=== PATIENT | male | born 1980 | race Hispanic/Latino ===

== ENCOUNTER 2018-07-24 06:13 | Emergency (ER) | payer OTHER, SELFPAY ==
[2018-07-24] MEDS ORDERED: KETOROLAC 30 MG/ML INJ ONE (06:50)
--- NOTE | 2018-07-24 06:52 | ER ---
Nurse's Notes [facility] Name: Danilo Baker Jr Age: 37 yrs Sex: Male : 1980 Arrival Date: 07/24/2018 Time: 06:14 Bed 7 Private MD: Diagnosis: Hemorrhoids and perianal venous thrombosis Presentation: 07/24 06:28 Presenting complaint: Patient states: "I have an abscess in my butt crack". Pt reports tl2 noticing it 2 days ago and states it is the size of a small egg. Denies any draining. Denies fever or any symptoms. Transition of care: patient was not received from another setting of care. Onset of symptoms was July 21, 2018. Risk Assessment: Do you want to hurt yourself or someone else? Patient reports no desire to harm self or others. Initial Sepsis Screen: Does the patient meet any 2 criteria? No. Patient's initial sepsis screen is negative. Does the patient have a suspected source of infection? No. Patient's initial sepsis screen is negative. Care prior to arrival: None. 06:28 Method Of Arrival: Ambulatory tl2 06:28 Acuity: SAURABH 3 tl2 Triage Assessment: :31 General: Appears in no apparent distress. uncomfortable, Behavior is cooperative, tl2 appropriate for age, anxious. Pain: Complains of pain in gluteal cleft Pain does not radiate. Pain currently is 10 out of 10 on a pain scale. Quality of pain is described as throbbing. Neuro: Level of Consciousness is awake, alert, obeys commands, Oriented to person, place, time, situation. Cardiovascular: Denies chest pain. Respiratory: Airway is patent Respiratory effort is even, unlabored, Respiratory pattern is regular, symmetrical. GI: No signs and/or symptoms were reported involving the gastrointestinal system. : No signs and/or symptoms were reported regarding the genitourinary system. Historical: - Allergies: : No Known Allergies; tl2 - Home Meds: : Metformin Oral [Active]; Glimepiride Oral [Active]; Lisinopril Oral [Active]; tl2 Lovastatin Oral [Active]; - PMHx: 06:31 Diabetes - NIDDM; Hypertension; Hyperlipidemia; tl2 - PSHx: : None; tl2 - Immunization history:: Adult Immunizations up to date. - Social history:: Smoking status: Patient/guardian denies using tobacco. - Ebola Screening: : No symptoms or risks identified at this time. Screenin:33 Abuse screen: Denies threats or abuse. Nutritional screening: No deficits noted. tl2 Tuberculosis screening: No symptoms or risk factors identified. Fall Risk None identified. Assessment: 06:31 General: see triage assessment. tl2 06:40 Reassessment: on PROJECT ARCHITECT assessment, pt appears to have a hemorrhoid, painful to touch. No tl2 redness or infection noted. 07:00 Reassessment: Patient appears in no apparent distress at this time. Patient and/or tl2 family updated on plan of care and expected duration. Pain level reassessed. Patient is alert, oriented x 3, equal unlabored respirations, skin warm/dry/pink. Pt verbalized understanding of discharge instructions, need for follow up and prescription usage. Vital Signs: 06:31 BP 134 / 99; Pulse 115; Resp 20; Temp 98.5(O); Pulse Ox 95% on R/A; Weight 99.79 kg; tl2 Height 5 ft. 7 in. (170.18 cm); Pain 10/10; 07:00 BP 132 / 98; Pulse 102; Resp 20; Pulse Ox 97% on R/A; tl2 06:31 Body Mass Index 34.46 (99.79 kg, 170.18 cm) tl2 ED Course: 06:14 Patient arrived in ED. am2 06:29 Triage completed. tl2 06:31 Arm band placed on right wrist. tl2 06:33 Patient has correct armband on for positive identification. Placed in gown. Bed in low tl2 position. Call light in reach. Side rails up X 1. 06:34 [facility]C [facility] kb 06:34 Isauro Andrade MD is Attending Physician. kb 07:01 No provider procedures requiring assistance completed. Patient did not have IV access tl2 during this emergency room visit. 07:03 Tarsha Mishra, ELIZA is Primary Nurse. tl2 Administered Medications: 06:49 Drug: TORadol 60 mg Route: IM; Site: right gluteus; tl2 07:30 Follow up: Response: No adverse reaction; Pain is decreased tl2 Outcome: 06:52 Discharge ordered by . kb 07:01 Discharged to home ambulatory. tl2 07:01 Condition: stable 07:01 Discharge instructions given to patient, Instructed on discharge instructions, follow up and referral plans. medication usage, Demonstrated understanding of instructions, follow-up care, medications, Prescriptions given X 2. 07:30 Patient left the ED. tl2 Signatures: Dina Garcia FNP-C FNP-Tarsha Yanes RN RN tl2 Nicky Arriaza am2 Corrections: (The following items were deleted from the chart) 06:39 06:31 Derm: Skin is pink, warm \\T\\ dry. Abscess located on gluteal cleft is quarter tl2 sized, has no drainage, is red, tl2 06:41 06:30 General: see triage assessment. tl2 tl2
--- NOTE | 2018-07-24 06:52 | EDPHYS ---
Physician Documentation [facility] Name: Danilo Baker Jr Age: 37 yrs Sex: Male : 1980 Arrival Date: 07/24/2018 Time: 06:14 Bed 7 Private MD: ED Physician Isauro Andrade HPI: 07/24 06:50 This 37 yrs old Male presents to ER via Ambulatory with complaints of Abscess. kb 06:50 The patient has experienced a previous episode. The patient has not recently seen a kb physician. 06:51 The patient presents to the emergency department with pain in the rectal area, that is kb moderate, that is severe. Onset: The symptoms/episode began/occurred 2 day(s) ago. Context: the patient has no known special context relating to the rectal area complaint(s). Modifying factors: The symptoms are alleviated by nothing, The symptoms are aggravated by bowel movement, movement, pressure. Associate signs and symptoms: The patient has no apparent associated signs or symptoms. Historical: - Allergies: 06:31 No Known Allergies; tl2 - Home Meds: 06:31 Metformin Oral [Active]; Glimepiride Oral [Active]; Lisinopril Oral [Active]; tl2 Lovastatin Oral [Active]; - PMHx: 06:31 Diabetes - NIDDM; Hypertension; Hyperlipidemia; tl2 - PSHx: 06:31 None; tl2 - Immunization history:: Adult Immunizations up to date. - Social history:: Smoking status: Patient/guardian denies using tobacco. - Ebola Screening: : No symptoms or risks identified at this time. ROS: 06:49 Constitutional: Negative for fever, chills, and weight loss, Cardiovascular: Negative kb for chest pain, palpitations, and edema, Respiratory: Negative for shortness of breath, cough, wheezing, and pleuritic chest pain, Back: Negative for injury and pain, MS/Extremity: Negative for injury and deformity, Skin: Negative for injury, rash, and discoloration, Neuro: Negative for headache, weakness, numbness, tingling, and seizure. 06:49 Abdomen/GI: Positive for rectal pain. Exam: 06:49 Constitutional: This is a well developed, well nourished patient who is awake, alert, kb and in no acute distress. Head/Face: Normocephalic, atraumatic. Chest/axilla: Normal chest wall appearance and motion. Nontender with no deformity. No lesions are appreciated. Cardiovascular: Regular rate and rhythm with a normal S1 and S2. No gallops, murmurs, or rubs. Normal PMI, no JVD. No pulse deficits. Respiratory: Lungs have equal breath sounds bilaterally, clear to auscultation and percussion. No rales, rhonchi or wheezes noted. No increased work of breathing, no retractions or nasal flaring. Abdomen/GI: Soft, non-tender, with normal bowel sounds. No distension or tympany. No guarding or rebound. No evidence of tenderness throughout. Skin: Warm, dry with normal turgor. Normal color with no rashes, no lesions, and no evidence of cellulitis. MS/ Extremity: Pulses equal, no cyanosis. Neurovascular intact. Full, normal range of motion. Neuro: Awake and alert, GCS 15, oriented to person, place, time, and situation. Cranial nerves II-XII grossly intact. Motor strength 5/5 in all extremities. Sensory grossly intact. Cerebellar exam normal. Normal gait. 06:49 Abdomen/GI: Rectal exam: rectal tone normal, hemorrhoid(s), external, with inflammation, with pain, without bleeding, without thrombosis, tenderness, that is severe, the exam is chaperoned by the nurse. Vital Signs: 06:31 BP 134 / 99; Pulse 115; Resp 20; Temp 98.5(O); Pulse Ox 95% on R/A; Weight 99.79 kg; tl2 Height 5 ft. 7 in. (170.18 cm); Pain 10/10; 07:00 BP 132 / 98; Pulse 102; Resp 20; Pulse Ox 97% on R/A; tl2 06:31 Body Mass Index 34.46 (99.79 kg, 170.18 cm) tl2 MDM: 06:34 Patient medically screened. kb 06:49 Data reviewed: vital signs, nurses notes. Data interpreted: Pulse oximetry: on room air kb is 95 %. Interpretation: normal. Counseling: I had a detailed discussion with the patient and/or guardian regarding: the historical points, exam findings, and any diagnostic results supporting the discharge/admit diagnosis, the need for outpatient follow up, a general surgeon, to return to the emergency department if symptoms worsen or persist or if there are any questions or concerns that arise at home. Administered Medications: 06:49 Drug: TORadol 60 mg Route: IM; Site: right gluteus; tl2 07:30 Follow up: Response: No adverse reaction; Pain is decreased tl2 Disposition: 07/24/18 06:52 Discharged to Home. Impression: Hemorrhoids and perianal venous thrombosis. - Condition is Stable. - Discharge Instructions: Hemorrhoids, [id number]. - Prescriptions for Anusol- HC 2.5 % Rectal Cream - Apply to affected area 1 application by TOPICAL route every 8 hours As needed; 30 gram. - Medication Reconciliation Form, Thank You Letter, Antibiotic Education, Prescription Opioid Use form. - Follow up: Emergency Department; When: As needed; Reason: Worsening of condition. Follow up: Private Physician; When: 2 - 3 days; Reason: Recheck today's complaints, Continuance of care, Re-evaluation by your physician. Addendum: 07/27/2018 17:29 Co-signature as Attending Physician, Isauro Andrade MD. g s Signatures: Dina Garcia, BETH-C BETH-Tarsha Yanes RN RN tl2 Isauro Andrade MD MD Corrections: (The following items were deleted from the chart) 07/24 07:30 06:52 07/24/2018 06:52 Discharged to Home. Impression: Hemorrhoids and perianal venous tl2 thrombosis. Condition is Stable. Forms are Medication Reconciliation Form, Thank You Letter, Antibiotic Education, Prescription Opioid Use. Follow up: Emergency Department; When: As needed; Reason: Worsening of condition. Follow up: Private Physician; When: 2 - 3 days; Reason: Recheck today's complaints, Continuance of care, Re-evaluation by your physician. kb
== END 2018-07-24 07:30 | disposition home or self-care (01) ==
LOC: ER 06:13
DX: K64.5 Perianal venous thrombosis (principal); E11.9 Type 2 diabetes mellitus without complications; I10 Essential (primary) hypertension; E78.5 Hyperlipidemia, unspecified; Z79.84 Long term (current) use of oral hypoglycemic drugs
CPT/HCPCS: 96372; 99283

== ENCOUNTER 2019-03-23 22:35 | Emergency (ER) | payer SELFPAY ==
[2019-03-23 23:06] LABS: Absolute Lymphocytes (CBC) 1.3 K/uL (0.7-4.9); Absolute Monocytes 0.6 K/uL (0.1-1.3); Absolute Neutrophil 5.7 K/uL (1.8-8.0); Basophils % 0.8 % (0-1.3); Eosinophils % 0.2 % (0-4.4); Hematocrit 47.1 % (39.6-49.0); Lymphocytes % 17.3 % (15.3-44.8); Monocytes % 7.5 % (3.3-12.3); RBC Red Blood Cell Count 5.29 M/uL (4.33-5.43)
[2019-03-23 23:26] LABS: Albumin 3.8 g/dL (3.4-5.0); Bilirubin Direct 0.2 mg/dL (0-0.2); Bilirubin Total 0.8 mg/dL (0.2-1.0); Potassium 3.8 mmol/L (3.5-5.1)
[2019-03-23] MEDS ORDERED: NA CHLORIDE 0.9% 2,000 ML ONE (23:31)
[2019-03-23] MEDS ORDERED: IBUPROFEN 200 MG TAB PO ONE (23:43)
[2019-03-24] MEDS ORDERED: PROMETHAZINE 25 MG/ML VIAL ONE (00:50)
[2019-03-24] MEDS ORDERED: DIPHENHYDRAMINE 50 MG/ML VIAL ONE (00:50)
[2019-03-24] MEDS ORDERED: KETOROLAC 30 MG/ML INJ ONE (00:50)
[2019-03-24] MEDS ORDERED: NA CHLORIDE 0.9% 1,000 ML ONE (01:35)
--- NOTE | 2019-03-24 02:10 | EDPHYS ---
Physician Documentation [facility] Name: Danilo Baker Jr Age: 38 yrs Sex: Male : 1980 Arrival Date: 03/23/2019 Time: 22:39 Bed 15 Private MD: ED Physician Pro Matamoros HPI: 03/24 00:02 This 38 yrs old Male presents to ER via Wheelchair with complaints of snw Headache, Worst Ever. 00:02 The patient complains of pain to the all over. The patient describes the headache as snw constant, a pressure. Onset: The symptoms/episode began/occurred acutely, 3 day(s) ago, and became persistent. Associated signs and symptoms: The patient has no apparent associated signs or symptoms. Severity of symptoms: At its worst the pain was the "worst in my life". Headache History: The patient has had previous headaches and this one is more severe than previous episodes. pt states this feels like his migraine but he does not have as much photophobia as the last time. The patient has not recently seen a physician. Historical: - Allergies: 03/23 22:44 No Known Allergies; ak1 - Home Meds: 22:44 Glimepiride Oral [Active]; Metformin Oral [Active]; Lovastatin Oral [Active]; ak1 lisinopril Oral [Active]; - PMHx: 22:44 Diabetes - NIDDM; Hyperlipidemia; Hypertension; ak1 - PSHx: 22:44 None; ak1 - Immunization history:: Flu vaccine is up to date. - Social history:: Smoking status: Patient uses tobacco products, denies chronic smoking, but will smoke occasionally. - Ebola Screening: : No symptoms or risks identified at this time. ROS: 03/24 00:01 Constitutional: Negative for fever, chills, and weight loss, Eyes: Negative for injury, snw pain, redness, and discharge, ENT: Negative for injury, pain, and discharge, Neck: Negative for injury, pain, and swelling, Cardiovascular: Negative for chest pain, palpitations, and edema, Respiratory: Negative for shortness of breath, cough, wheezing, and pleuritic chest pain, Abdomen/GI: Negative for abdominal pain, nausea, vomiting, diarrhea, and constipation, Back: Negative for injury and pain, : Negative for injury, bleeding, discharge, and swelling, MS/Extremity: Negative for injury and deformity, Skin: Negative for injury, rash, and discoloration. Neuro: Positive for headache, of the "pressure to entire head". Exam: 00:01 Head/Face: Normocephalic, atraumatic. Eyes: Pupils equal round and reactive to light, snw extra-ocular motions intact. Lids and lashes normal. Conjunctiva and sclera are non-icteric and not injected. Cornea within normal limits. Periorbital areas with no swelling, redness, or edema. ENT: Nares patent. No nasal discharge, no septal abnormalities noted. Tympanic membranes are normal and external auditory canals are clear. Oropharynx with no redness, swelling, or masses, exudates, or evidence of obstruction, uvula midline. Mucous membranes moist. Neck: Trachea midline, no thyromegaly or masses palpated, and no cervical lymphadenopathy. Supple, full range of motion without nuchal rigidity, or vertebral point tenderness. No Meningismus. Chest/axilla: Normal chest wall appearance and motion. Nontender with no deformity. No lesions are appreciated. 00:01 Respiratory: Lungs have equal breath sounds bilaterally, clear to auscultation and percussion. No rales, rhonchi or wheezes noted. No increased work of breathing, no retractions or nasal flaring. Abdomen/GI: Soft, non-tender, with normal bowel sounds. No distension or tympany. No guarding or rebound. No evidence of tenderness throughout. Back: No spinal tenderness. No costovertebral tenderness. Full range of motion. Skin: Warm, dry with normal turgor. Normal color with no rashes, no lesions, and no evidence of cellulitis. MS/ Extremity: Pulses equal, no cyanosis. Neurovascular intact. Full, normal range of motion. Neuro: Awake and alert, GCS 15, oriented to person, place, time, and situation. Cranial nerves II-XII grossly intact. Motor strength 5/5 in all extremities. Sensory grossly intact. Cerebellar exam normal. Normal gait. Psych: Awake, alert, with orientation to person, place and time. Behavior, mood, and affect are within normal limits. 00:01 Constitutional: The patient appears alert, awake, uncomfortable. 00:01 Cardiovascular: Rate: tachycardic, Heart sounds: normal. Vital Signs: 03/23 22:44 BP 114 / 90; Pulse 109; Resp 20; Temp 101(O); Pulse Ox 97% on R/A; Weight 99.79 kg (R); ak1 Height 5 ft. 7 in. (170.18 cm) (R); Pain 10; 23:35 BP 125 / 90; Pulse 109; Resp 24; Pulse Ox 99% on R/A; tl2 03/24 00:03 BP 139 / 89; Pulse 106; Resp 24; Pulse Ox 97% on R/A; tl2 00:35 BP 132 / 83; Pulse 98; Resp 22; Temp 100.5(O); Pulse Ox 98% on R/A; tl2 01:25 BP 127 / 78; Pulse 91; Resp 24; Pulse Ox 97% on R/A; tl2 02:11 BP 120 / 71; Pulse 84; Resp 22; Temp 98.2(O); Pulse Ox 98% on R/A; tl2 03/23 22:44 Body Mass Index 34.46 (99.79 kg, 170.18 cm) ak1 Jose Coma Score: 01:30 Eye Response: spontaneous(4). Verbal Response: oriented(5). Motor Response: obeys snw commands(6). Total: 15. MDM: 03/23 22:42 Patient medically screened. snw 03/24 01:30 Data reviewed: vital signs, nurses notes. Data interpreted: Pulse oximetry: on room air snw is 97 %. Interpretation: normal. Counseling: I had a detailed discussion with the patient and/or guardian regarding: the historical points, exam findings, and any diagnostic results supporting the discharge/admit diagnosis, lab results, radiology results, the need for outpatient follow up, for definitive care. Medication response: pain down from 09/09 to 7/10 - discussed LP for dx/tx. Pt refuses exam at this time. Refusal of service: The patient/guardian displays adequate decision making capability and despite a detailed discussion of alternatives, benefits, risks, and consequences refuses: Lumbar Puncture procedure. Special discussion: Based on the history and exam findings, there is no indication for further emergent testing or inpatient evaluation. I discussed with the patient/guardian the need to see the primary care provider for further evaluation of the symptoms. 03/23 22:47 Order name: Basic Metabolic Panel; Complete Time: 23:32 snw 03/23 22:47 Order name: CBC with Diff; Complete Time: 23:12 snw 03/23 22:47 Order name: Hepatic Function; Complete Time: 23:32 snw 03/23 22:47 Order name: Lipase; Complete Time: 23:32 snw 03/23 22:47 Order name: Flu; Complete Time: 23:59 snw 03/23 22:47 Order name: Strep; Complete Time: 23:59 snw 03/23 22:47 Order name: Procalcitonin; Complete Time: 00:31 snw 03/23 22:47 Order name: Lactate; Complete Time: 00:31 snw 03/23 22:47 Order name: CT Head Brain wo Cont snw 03/23 22:50 Order name: Blood Culture Adult (2) snw 03/23 23:55 Order name: Throat Culture EDND 03/23 22:47 Order name: IV Saline Lock; Complete Time: 22:54 snw 03/23 22:47 Order name: Labs collected and sent; Complete Time: 22:54 snw 03/23 22:47 Order name: FSBS; Complete Time: 22:53 snw Administered Medications: 03/23 23:26 Drug: NS 0.9% 1000 ml Route: IV; Rate: 1000 ml; Site: right antecubital; tl2 03/24 00:47 Follow up: IV Status: Completed infusion; IV Intake: 1000ml 2 03/23 23:26 Drug: NS 0.9% 1000 ml Route: IV; Rate: 1 bolus; Site: right antecubital; tl2 03/24 00:47 Follow up: IV Status: Completed infusion; IV Intake: 1000ml 2 03/23 23:35 Drug: Motrin 600 mg Route: PO; tl2 03/24 00:45 Follow up: Response: No adverse reaction; Temperature is decreased tl2 00:45 Drug: Phenergan 12.5 mg Route: IVP; Site: right antecubital; tl2 01:30 Follow up: Response: No adverse reaction; Marked relief of symptoms tl2 00:45 Drug: Benadryl 12.5 mg Route: IVP; Site: right antecubital; tl2 01:30 Follow up: Response: No adverse reaction; Marked relief of symptoms tl2 00:45 Drug: TORadol - Ketorolac 15 mg Route: IVP; Site: right antecubital; tl2 01:30 Follow up: Response: No adverse reaction; Marked relief of symptoms tl2 01:25 Drug: NS 0.9% 1000 ml Route: IV; Rate: 1 bolus; Site: right antecubital; tl2 02:37 Follow up: IV Status: Completed infusion; IV Intake: 1000ml tl2 Point of Care Testing: Blood Glucose: 03/23 22:50 Blood Glucose: 207 mg/dL; tl2 Ranges: Critical Glucose Levels:Adult <50 mg/dl or >400 mg/dl <40 mg/dl or >180 mg/dl Disposition: 03/24 02:47 Co-signature as Attending Physician, Pro Matamoros MD. rn Disposition: 03/24/19 02:09 Discharged to Home. Impression: Fever presenting with conditions classified elsewhere, Dehydration, Headache. - Condition is Stable. - Discharge Instructions: Dehydration, Adult, Fever, Adult, General Headache Without Cause, Rehydration, Adult. - Prescriptions for orphenadrine citrate 100 mg Oral Tablet Sustained Release - take 1 tablet by ORAL route 2 times per day As needed; 20 tablet. promethazine 25 mg Oral Tablet - take 1 tablet by ORAL route every 6 hours As needed; 20 tablet. - Work release form, Medication Reconciliation Form, Thank You Letter, Antibiotic Education, Prescription Opioid Use form. - Follow up: Private Physician; When: 1 - 2 days; Reason: Recheck today's complaints, Continuance of care, Re-evaluation by your physician. Follow up: Emergency Department; When: As needed; Reason: Worsening of condition. Signatures: Dispatcher [employer] EDND Jasmyne Santoro, CLEANER TOUCH UP WORKER-C CLEANER TOUCH UP WORKER-Csnw Pro Matamoros MD MD rn Krenek, Amber, RN RN ak1 Tarsha Mishra RN RN tl2 Corrections: (The following items were deleted from the chart) 02:37 03/23 22:47 Urine Dipstick-Ancillary ordered. snw tl2 03/24 02:37 02:09 03/24/2019 02:09 Discharged to Home. Impression: Fever presenting with conditions tl2 classified elsewhere; Dehydration; Headache. Condition is Stable. Discharge Instructions: Dehydration, Adult, Fever, Adult, General Headache Without Cause, Rehydration, Adult. Prescriptions for orphenadrine citrate 100 mg Oral Tablet Sustained Release - take 1 tablet by ORAL route 2 times per day As needed; 20 tablet, promethazine 25 mg Oral Tablet - take 1 tablet by ORAL route every 6 hours As needed; 20 tablet. and Forms are Work release form, Medication Reconciliation Form, Thank You Letter, Antibiotic Education, Prescription Opioid Use. Follow up: Private Physician; When: 1 - 2 days; Reason: Recheck today's complaints, Continuance of care, Re-evaluation by your physician. Follow up: Emergency Department; When: As needed; Reason: Worsening of condition. snw
--- NOTE | 2019-03-24 02:10 | ER ---
Nurse's Notes [facility] Name: Danilo Baker Jr Age: 38 yrs Sex: Male : 1980 Arrival Date: 03/23/2019 Time: 22:39 Bed 15 Private MD: Diagnosis: Fever presenting with conditions classified elsewhere;Dehydration;Headache Presentation: 03/23 22:43 Presenting complaint: Patient states: headache X3 days. pt denies N/V/D. Transition of ak1 care: patient was not received from another setting of care. Onset of symptoms is unknown. Risk Assessment: Do you want to hurt yourself or someone else? Patient reports no desire to harm self or others. Care prior to arrival: None. 22:43 Method Of Arrival: Wheelchair ak1 22:43 Acuity: SAURABH 3 ak1 22:50 Initial Sepsis Screen: Does the patient meet any 2 criteria? RR > 20 per min. Temp tl2 <36.0*C (96.8*F)) or > 38.3*C (100.9*F). HR > 90 bpm. Yes Does the patient have a suspected source of infection? Yes: Other: Unable to diagnose source at this time If YES to both, name of provider notified: Jasmyne TAI. Triage Assessment: 22:44 Neuro: Level of Consciousness is awake, alert, obeys commands, Oriented to person, ak1 place, time, situation, Moves all extremities. Gait is steady, Speech is normal. 23:29 Headache History: Denies prior headaches. tl2 Historical: - Allergies: 22:44 No Known Allergies; ak1 - Home Meds: 22:44 Glimepiride Oral [Active]; Metformin Oral [Active]; Lovastatin Oral [Active]; ak1 lisinopril Oral [Active]; - PMHx: 22:44 Diabetes - NIDDM; Hyperlipidemia; Hypertension; ak1 - PSHx: 22:44 None; ak1 - Immunization history:: Flu vaccine is up to date. - Social history:: Smoking status: Patient uses tobacco products, denies chronic smoking, but will smoke occasionally. - Ebola Screening: : No symptoms or risks identified at this time. Screenin:50 Abuse screen: Denies threats or abuse. Nutritional screening: No deficits noted. tl2 Tuberculosis screening: No symptoms or risk factors identified. Fall Risk None identified. Assessment: 22:50 General: Appears in no apparent distress. uncomfortable, Behavior is calm, cooperative, tl2 appropriate for age. Pain: Complains of pain in headache Pain currently is 10 out of 10 on a pain scale. Quality of pain is described as pressure, sharp. Neuro: Level of Consciousness is awake, alert, obeys commands, Oriented to person, place, time, situation, Speech is normal. Cardiovascular: Denies chest pain. Respiratory: Airway is patent Respiratory effort is even, unlabored, Respiratory pattern is regular, symmetrical. GI: Patient currently denies nausea, vomiting. : No signs and/or symptoms were reported regarding the genitourinary system. Derm: Skin is pink, warm \T\ dry. 03/24 00:00 Reassessment: Patient appears in no apparent distress at this time. No changes from tl2 previously documented assessment. Patient and/or family updated on plan of care and expected duration. Pain level reassessed. 01:00 Reassessment: Patient appears in no apparent distress at this time. Patient and/or tl2 family updated on plan of care and expected duration. Pain level reassessed. Patient is alert, oriented x 3, equal unlabored respirations, skin warm/dry/pink. 02:36 Reassessment: Patient appears in no apparent distress at this time. Patient and/or tl2 family updated on plan of care and expected duration. Pain level reassessed. Patient is alert, oriented x 3, equal unlabored respirations, skin warm/dry/pink. pt verbalized understanding of discharge instructions, need for follow up and prescription usage. Pt ambulatory out of ER with family Patient states feeling better. Patient states symptoms have improved. Vital Signs: 03/23 22:44 BP 114 / 90; Pulse 109; Resp 20; Temp 101(O); Pulse Ox 97% on R/A; Weight 99.79 kg (R); ak1 Height 5 ft. 7 in. (170.18 cm) (R); Pain 10/10; 23:35 BP 125 / 90; Pulse 109; Resp 24; Pulse Ox 99% on R/A; tl2 03/24 00:03 BP 139 / 89; Pulse 106; Resp 24; Pulse Ox 97% on R/A; tl2 00:35 BP 132 / 83; Pulse 98; Resp 22; Temp 100.5(O); Pulse Ox 98% on R/A; tl2 01:25 BP 127 / 78; Pulse 91; Resp 24; Pulse Ox 97% on R/A; tl2 02:11 BP 120 / 71; Pulse 84; Resp 22; Temp 98.2(O); Pulse Ox 98% on R/A; tl2 03/23 22:44 Body Mass Index 34.46 (99.79 kg, 170.18 cm) ak1 [place] Coma Score: 01:30 Eye Response: spontaneous(4). Verbal Response: oriented(5). Motor Response: obeys snw commands(6). Total: 15. ED Course: 03/23 22:39 Patient arrived in ED. am2 22:41 Jasmyne Santoro FNP-C is PHCP. snw 22:41 Pro Matamoros MD is Attending Physician. snw 22:44 Triage completed. ak1 22:44 Arm band placed on Patient placed in an exam room, on a stretcher, on pulse oximetry, ak1 Patient notified of wait time. 22:50 Patient has correct armband on for positive identification. Bed in low position. Call tl2 light in reach. Side rails up X2. 22:50 Inserted saline lock: 20 gauge in right antecubital area, using aseptic technique. tl2 Blood collected. 22:56 CT completed. Patient tolerated procedure well. Patient moved to CT via wheelchair. vm2 Patient moved back from CT. 23:03 CT Head Brain wo Cont In Process Unspecified. EDMS 23:26 Tarsha Mishra, ELIZA is Primary Nurse. tl2 03/24 02:36 No provider procedures requiring assistance completed. IV discontinued, intact, tl2 bleeding controlled, No redness/swelling at site. Pressure dressing applied. Administered Medications: 03/23 23:26 Drug: NS 0.9% 1000 ml Route: IV; Rate: 1000 ml; Site: right antecubital; tl2 03/24 00:47 Follow up: IV Status: Completed infusion; IV Intake: 1000ml tl2 03/23 23:26 Drug: NS 0.9% 1000 ml Route: IV; Rate: 1 bolus; Site: right antecubital; tl2 03/24 00:47 Follow up: IV Status: Completed infusion; IV Intake: 1000ml tl2 03/23 23:35 Drug: Motrin 600 mg Route: PO; tl2 03/24 00:45 Follow up: Response: No adverse reaction; Temperature is decreased tl2 00:45 Drug: Phenergan 12.5 mg Route: IVP; Site: right antecubital; tl2 01:30 Follow up: Response: No adverse reaction; Marked relief of symptoms tl2 00:45 Drug: Benadryl 12.5 mg Route: IVP; Site: right antecubital; tl2 01:30 Follow up: Response: No adverse reaction; Marked relief of symptoms tl2 00:45 Drug: TORadol - Ketorolac 15 mg Route: IVP; Site: right antecubital; tl2 01:30 Follow up: Response: No adverse reaction; Marked relief of symptoms tl2 01:25 Drug: NS 0.9% 1000 ml Route: IV; Rate: 1 bolus; Site: right antecubital; tl2 02:37 Follow up: IV Status: Completed infusion; IV Intake: 1000ml tl2 Point of Care Testing: Blood Glucose: 03/23 22:50 Blood Glucose: 207 mg/dL; tl2 Ranges: Intake: 04 00:47 IV: 1000ml; Total: 1000ml. tl2 00:47 IV: 1000ml; Total: 2000ml. tl2 02:37 IV: 1000ml; Total: 3000ml. tl2 Outcome: 02:09 Discharge ordered by . snw 02:36 Discharged to home ambulatory, with family. tl2 02:36 Condition: stable 02:36 Discharge instructions given to patient, Instructed on discharge instructions, follow up and referral plans. medication usage, Demonstrated understanding of instructions, follow-up care, medications, Prescriptions given X 2. 02:37 Patient left the ED. tl2 Signatures: Dispatcher [employer] EDMS Jasmyne Santoro, BETH-C STUDIO TECHNICIAN-Csnw Thi Cee RN RN ak1 Tarsha Mishra RN RN tl2 Nicky Arriaza [place] 2 Corrections: (The following items were deleted from the chart) 00:46 00:35 BP 132 / 83; Pulse 98bpm; Resp 22bpm; Pulse Ox 98% RA; tl2 tl2
--- NOTE | 2019-03-25 11:39 | RAD REPORT ---
EXAM DESCRIPTION: CT - Head Brain Wo Cont - 03/24/2019 1:41 am CLINICAL HISTORY: Headache. COMPARISON: None. TECHNIQUE: CT scan of the brain without IV contrast. This exam was performed according to our depa rtmental dose-optimization program, which includes automated exposure control, adjustment of the mA a nd/or kV according to patient size and/or use of iterative reconstruction technique. FINDINGS: The ventricles, cisterns, and sulci are unremarkable. No focal white matter lesions are se en. No evidence of acute infarction, intracranial hemorrhage, extra-axial fluid collection, or midlin e shift. No air-fluid levels are seen in the paranasal sinuses to suggest acute sinusitis. No depress ed skull fracture. IMPRESSION: No acute intracranial findings. Electronically signed by: Howie Gutierrez MD 03/23/2019 11:07 PM CDT Due to temporary technical issues with the PACS/Fluency reporting system, reports are being signed by the in house radiologist as a courtesy to ensure prompt reporting. The interpreting radiologist is f ully responsible for the content of the report.
== END 2019-03-24 02:37 | disposition home or self-care (01) ==
LOC: ER 22:35
DX: R51 Headache (principal); R50.81 Fever presenting with conditions classified elsewhere; E86.0 Dehydration; I10 Essential (primary) hypertension; E78.5 Hyperlipidemia, unspecified; E11.9 Type 2 diabetes mellitus without complications
CPT/HCPCS: 36415; 70450; 80048; 80076; 82962; 83605; 83690; 84145; 85025; 87040; 87070; 87081; 87804; 96361; 96374; 96375; 99284; J2550; J7030

== ENCOUNTER 2019-08-31 10:26 | Emergency (ER) | payer SELFPAY ==
--- NOTE | 2019-08-31 11:43 | ER ---
Nurse's Notes [facility] Name: Danilo Baker Jr Age: 38 yrs Sex: Male : 1980 Arrival Date: 08/31/2019 Time: 10:26 Bed 10 Private MD: Diagnosis: Balanitis Presentation: 08/31 11:12 Presenting complaint: Patient states: "Friday I started having inflammation and pain on aj1 my foreskin when I showered it [place] really really bad. I'm unable to peel back the foreskin without a lot of pain" Denies fever. Transition of care: patient was not received from another setting of care. Onset of symptoms was August 2019. Risk Assessment: Do you want to hurt yourself or someone else? Patient reports no desire to harm self or others. Initial Sepsis Screen: Does the patient meet any 2 criteria? No. Patient's initial sepsis screen is negative. Does the patient have a suspected source of infection? No. Patient's initial sepsis screen is negative. Care prior to arrival: None. 11:12 Method Of Arrival: Ambulatory aj 11:12 Acuity: SAURABH 4 aj1 Triage Assessment: 11:14 General: Appears in no apparent distress. uncomfortable, Behavior is calm, cooperative, aj1 appropriate for age. Pain: Complains of pain in pelvis Pain currently is 5 out of 10 on a pain scale. Neuro: Level of Consciousness is awake, alert, obeys commands. Cardiovascular: Patient's skin is warm and dry. Respiratory: Airway is patent Respiratory effort is even, unlabored, Respiratory pattern is regular, symmetrical. Historical: - Allergies: 11:14 No Known Allergies; aj1 - Home Meds: 11:14 Glimepiride Oral [Active]; lisinopril Oral [Active]; Lovastatin Oral [Active]; aj1 Metformin Oral [Active]; - PMHx: 11:14 Diabetes - NIDDM; Hyperlipidemia; Hypertension; aj1 - Immunization history:: Flu vaccine is not up to date. - Social history:: Smoking status: Patient/guardian denies using tobacco. - Ebola Screening: : Patient denies travel to an Ebola-affected area in the 21 days before illness onset. Screenin:15 Abuse screen: Denies threats or abuse. Nutritional screening: No deficits noted. aa5 Tuberculosis screening: No symptoms or risk factors identified. Fall Risk None identified. Assessment: 11:15 General: Appears uncomfortable, Behavior is calm, cooperative. Pain: Complains of pain aa5 in head of penis Pain currently is 5 out of 10 on a pain scale. Quality of pain is described as burning, tender, stinging, Is continuous. Neuro: Level of Consciousness is awake, alert, obeys commands, Oriented to person, place, time, situation. Cardiovascular: Patient's skin is warm and dry. Respiratory: Airway is patent Respiratory effort is even, unlabored, Respiratory pattern is regular, symmetrical. GI: No signs and/or symptoms were reported involving the gastrointestinal system. : Swelling noted to head of penis. EENT: No signs and/or symptoms were reported regarding the EENT system. Derm: Skin is pink, warm \\T\\ dry. Musculoskeletal: Range of motion: intact in all extremities. 12:00 Reassessment: Patient is alert, oriented x 3, equal unlabored respirations, skin aa5 warm/dry/pink. Vital Signs: 11:14 BP 125 / 81; Pulse 87; Resp 18; Temp 97.4; Pulse Ox 98% on R/A; Weight 95.25 kg (R); aj1 Height 5 ft. 7 in. (170.18 cm) (R); Pain 5/10; 11:14 Body Mass Index 32.89 (95.25 kg, 170.18 cm) aj1 ED Course: 10:26 Patient arrived in ED. as 11:13 Triage completed. aj1 11:14 Arm band placed on Patient placed in an exam room. aj1 11:15 Patient has correct armband on for positive identification. aa5 11:19 Isauro Andrade MD is Attending Physician. gs 11:42 Sudhakar Jean MD is Referral Physician. gs 12:00 Lucia Álvarez, ELIZA is Primary Nurse. aa5 12:00 No provider procedures requiring assistance completed. Patient did not have IV access aa5 during this emergency room visit. Administered Medications: No medications were administered Outcome: 11:42 Discharge ordered by . gs 12:00 Discharged to home ambulatory. aa5 12:00 Condition: stable 12:00 Discharge instructions given to patient, Instructed on discharge instructions, follow up and referral plans. medication usage, Demonstrated understanding of instructions, follow-up care, medications, Prescriptions given X 1. 12:00 Patient left the ED. aa5 Signatures: Shellie Machuca RN RN aj1 Monse Gama Audri, RN RN aa5 Isauro Andrade MD MD
--- NOTE | 2019-08-31 11:43 | EDPHYS ---
Physician Documentation [facility] Name: Danilo Baker Jr Age: 38 yrs Sex: Male : 1980 Arrival Date: 08/31/2019 Time: 10:26 Bed 10 Private MD: ED Physician Isauro Andrade HPI: 08/31 11:34 This 38 yrs old Male presents to ER via Ambulatory with complaints of Penile gs Problem. 11:34 The patient presents with swelling pain foreskin. Onset: The symptoms/episode gs began/occurred gradually, 3 day(s) ago. Modifying factors: The symptoms are alleviated by nothing, the symptoms are aggravated by movement. Associated signs and symptoms: Pertinent negatives: dysuria, fever. Severity of symptoms: At their worst the symptoms were moderate, in the emergency department the symptoms are unchanged. The patient has experienced similar episodes in the past, a few times. Historical: - Allergies: 11:14 No Known Allergies; aj1 - Home Meds: 11:14 Glimepiride Oral [Active]; lisinopril Oral [Active]; Lovastatin Oral [Active]; aj1 Metformin Oral [Active]; - PMHx: 11:14 Diabetes - NIDDM; Hyperlipidemia; Hypertension; aj1 - Immunization history:: Flu vaccine is not up to date. - Social history:: Smoking status: Patient/guardian denies using tobacco. - Ebola Screening: : Patient denies travel to an Ebola-affected area in the 21 days before illness onset. ROS: 11:34 All other systems are negative. gs Exam: 11:34 Head/Face: Normocephalic, atraumatic. Eyes: Pupils equal round and reactive to light, gs extra-ocular motions intact. Lids and lashes normal. Conjunctiva and sclera are non-icteric and not injected. Cornea within normal limits. Periorbital areas with no swelling, redness, or edema. ENT: Nares patent. No nasal discharge, no septal abnormalities noted. Tympanic membranes are normal and external auditory canals are clear. Oropharynx with no redness, swelling, or masses, exudates, or evidence of obstruction, uvula midline. Mucous membranes moist. Neck: Trachea midline, no thyromegaly or masses palpated, and no cervical lymphadenopathy. Supple, full range of motion without nuchal rigidity, or vertebral point tenderness. No Meningismus. Chest/axilla: Normal chest wall appearance and motion. Nontender with no deformity. No lesions are appreciated. Cardiovascular: Regular rate and rhythm with a normal S1 and S2. No gallops, murmurs, or rubs. Normal PMI, no JVD. No pulse deficits. Respiratory: Lungs have equal breath sounds bilaterally, clear to auscultation and percussion. No rales, rhonchi or wheezes noted. No increased work of breathing, no retractions or nasal flaring. Abdomen/GI: Soft, non-tender, with normal bowel sounds. No distension or tympany. No guarding or rebound. No evidence of tenderness throughout. Back: No spinal tenderness. No costovertebral tenderness. Full range of motion. Skin: Warm, dry with normal turgor. Normal color with no rashes, no lesions, and no evidence of cellulitis. MS/ Extremity: Pulses equal, no cyanosis. Neurovascular intact. Full, normal range of motion. Neuro: Awake and alert, GCS 15, oriented to person, place, time, and situation. Cranial nerves II-XII grossly intact. Motor strength 5/5 in all extremities. Sensory grossly intact. Cerebellar exam normal. Normal gait. 11:34 Constitutional: The patient appears alert, awake. 11:40 : Male external genitalia: Patient is not circumisioned. swelling: foreskin able to gs retract 3/[address] to stop due to pain. Vital Signs: 11:14 BP 125 / 81; Pulse 87; Resp 18; Temp 97.4; Pulse Ox 98% on R/A; Weight 95.25 kg (R); aj1 Height 5 ft. 7 in. (170.18 cm) (R); Pain 5/10; 11:14 Body Mass Index 32.89 (95.25 kg, 170.18 cm) aj1 MDM: 11:30 Patient medically screened. gs 11:40 Data reviewed: vital signs, nurses notes. Counseling: I had a detailed discussion with gs the patient and/or guardian regarding: the historical points, exam findings, and any diagnostic results supporting the discharge/admit diagnosis, the need for outpatient follow up, a urologist. Administered Medications: No medications were administered Disposition: 08/31/19 11:42 Discharged to Home. Impression: Balanitis. - Condition is Stable. - Discharge Instructions: Balanitis. - Prescriptions for Clotrimazole 1 % Topical Cream - Apply to affected area 1 application by TOPICAL route every 12 hours; 30 gram. - Medication Reconciliation Form, Thank You Letter, Antibiotic Education, Prescription Opioid Use form. - Follow up: Private Physician; When: 2 - 3 days; Reason: Re-evaluation by your physician. Follow up: Sudhakar Jean MD; When: 2 - 3 days; Reason: Re-evaluation by your physician. Signatures: Shellie Machuca RN RN aj1 Lucia Álvarez RN RN aa5 Isauro Andrade MD MD gs Corrections: (The following items were deleted from the chart) 11:42 11:42 08/31/2019 11:42 Discharged to Home. Impression: Balanitis. Condition is Stable. gs Forms are Medication Reconciliation Form, Thank You Letter, Antibiotic Education, Prescription Opioid Use. Follow up: Private Physician; When: 2 - 3 days; Reason: Re-evaluation by your physician. gs 12:00 11:42 08/31/2019 11:42 Discharged to Home. Impression: Balanitis. Condition is Stable. aa5 Forms are Medication Reconciliation Form, Thank You Letter, Antibiotic Education, Prescription Opioid Use. Follow up: Private Physician; When: 2 - 3 days; Reason: Re-evaluation by your physician. Follow up: Sudhakar Jean; When: 2 - 3 days; Reason: Re-evaluation by your physician. gs
[2019-08-31 12:08] VITALS: BP 125/81; TEMP 97.4; O2SAT 98
== END 2019-08-31 12:00 | disposition home or self-care (01) ==
LOC: ER 10:26
DX: N48.1 Balanitis (principal); I10 Essential (primary) hypertension; E11.9 Type 2 diabetes mellitus without complications; E78.5 Hyperlipidemia, unspecified
CPT/HCPCS: 99282

== ENCOUNTER 2022-06-29 08:11 | Emergency (ER) | payer SELFPAY ==
--- NOTE | 2022-06-29 10:21 | EDPHYS ---
Physician Documentation [facility] Name: Danilo Baker Jr Age: 41 yrs Sex: Male : 1980 Arrival Date: 06/29/2022 Time: 08:13 Bed 9 Private MD: ED Physician Lillian Dumont HPI: 06/29 08:37 This 41 yrs old Male presents to ER via Ambulatory with complaints of Cough, jh7 Congestion. 08:37 The patient or guardian reports cough, described as moderate. Onset: The jh7 symptoms/episode began/occurred 2 day(s) ago. Associated signs and symptoms: Pertinent positives: Congestion. Patient presents for hacking cough, nasal congestion, and fatigue for the past 2 days. History of hypertension and diabetes.. Historical: - Allergies: 08:28 No Known Allergies; ss - Home Meds: 08:28 None [Active]; ss - PMHx: 08:28 Diabetes - NIDDM; Hyperlipidemia; Hypertension; ss - Immunization history:: Client reports receiving the 2nd dose of the Covid vaccine. - Social history:: Smoking status: Reported history of juuling and/or vaping. ROS: 08:37 Constitutional: Negative for fever, chills, and weight loss, Eyes: Negative for injury, jh7 pain, redness, and discharge, ENT: Negative for injury, pain, and discharge, Cardiovascular: Negative for chest pain, palpitations, and edema, Abdomen/GI: Negative for abdominal pain, nausea, vomiting, diarrhea, and constipation, Back: Negative for injury and pain, Skin: Negative for injury, rash, and discoloration, Neuro: Negative for headache, weakness, numbness, tingling, and seizure. 08:37 ENT: Positive for nasal discharge, sinus congestion, Negative for ear pain. 08:37 Respiratory: Positive for cough, Negative for shortness of breath. 08:37 All other systems are negative. Exam: 08:37 Constitutional: This is a well developed, well nourished patient who is awake, alert, jh7 and in no acute distress. Head/Face: Normocephalic, atraumatic. Eyes: Pupils equal round and reactive to light, extra-ocular motions intact. Lids and lashes normal. Conjunctiva and sclera are non-icteric and not injected. Cornea within normal limits. Periorbital areas with no swelling, redness, or edema. Neck: Trachea midline, no thyromegaly or masses palpated, and no cervical lymphadenopathy. Supple, full range of motion without nuchal rigidity, or vertebral point tenderness. No Meningismus. Cardiovascular: Regular rate and rhythm with a normal S1 and S2. No gallops, murmurs, or rubs. Normal PMI, no JVD. No pulse deficits. Abdomen/GI: Soft, non-tender, with normal bowel sounds. No distension or tympany. No guarding or rebound. No evidence of tenderness throughout. Back: No spinal tenderness. No costovertebral tenderness. Full range of motion. Skin: Warm, dry with normal turgor. Normal color with no rashes, no lesions, and no evidence of cellulitis. Neuro: Awake and alert, GCS 15, oriented to person, place, time, and situation. Normal gait. 08:37 ENT: Nose: Turbinates: are swollen bilaterally, nasal drainage, and is seen coming from both nares, that is clear, Posterior pharynx: Postnasal drainage. 08:37 Respiratory: the patient does not display signs of respiratory distress, Respirations: normal, Breath sounds: are clear throughout, Respiratory rate: 18 Hacking cough noted on exam. Vital Signs: 08:27 BP 131 / 96; Pulse 81; Resp 16; Temp 97.2(TE); Pulse Ox 99% on R/A; Weight 70.31 kg; ss Height 5 ft. 8 in. (172.72 cm); Pain 0/10; 08:27 Body Mass Index 23.57 (70.31 kg, 172.72 cm) MDM: 08:30 Patient medically screened. [facility] 10:15 Differential Diagnosis: Bronchitis Upper Respiratory Infection Viral Syndrome [facility] Pneumonia. Data reviewed: vital signs, nurses notes, lab test result(s), radiologic studies, plain films. Data interpreted: Pulse oximetry: is 99 %. Interpretation: normal. Counseling: I had a detailed discussion with the patient and/or guardian regarding: the historical points, exam findings, and any diagnostic results supporting the discharge/admit diagnosis, to return to the emergency department if symptoms worsen or persist or if there are any questions or concerns that arise at home. 06/29 08:31 Order name: SARS-COV-2 RT PCR (Document "Date of Onset" if Symptomatic); Complete Time: [facility] 10:03 06/29 08:31 Order name: XRAY Chest (1 view); Complete Time: 10:58 [facility] Administered Medications: No medications were administered Disposition: 15:30 Co-signature as Attending Physician, Lillian Dumont MD STAFF ATTESTATION STATEMENT I sd2 was immediately available on-site in the Emergency Department for consultation in the care of the patient. Lillian Dumont MD. Disposition Summary: 06/29/22 10:20 Discharge Ordered Location: Home [facility] Problem: new [facility] Symptoms: are unchanged [facility] Condition: Stable [facility] Diagnosis - Acute bronchitis, unspecified [facility] Followup: [facility] - With: Private Physician - When: 2 - 3 days - Reason: Recheck today's complaints Discharge Instructions: - Discharge Summary Sheet [facility] - Acute Bronchitis, Adult [facility] - Viral Respiratory Infection [facility] Forms: - Medication Reconciliation Form [facility] - Thank You Letter [facility] - Antibiotic Education [facility] Prescriptions: - ProAir HFA 90 mcg/actuation Inhalation HFA aerosol inhaler - inhale 2 puff by INHALATION route every 4-6 hours As needed; 1 Inhaler; [facility] Refills: 0, Product Selection Permitted - Tessalon Perles 100 mg Oral Capsule - take 1 capsule by ORAL route every 8 hours As needed; 15 capsule; Refills: 0, [facility] Product Selection Permitted - Zithromax Z-Tenzin 250 mg Oral Tablet - take 1 tablet by ORAL route as directed for 5 days Day 1 - take two (2) tablets [facility] one time. Day 2, 3, 4 , 5 take one (1) tablet once daily.; 6 tablet; Refills: 0, Product Selection Permitted Signatures: Dispatcher [employer] Rosy Arroyo RN RN ss Hadash, Jennifer, ROLL FILLER ROLL FILLER [facility] Lillian Dumont MD MD sd2
--- NOTE | 2022-06-29 10:21 | ER ---
Nurse's Notes [facility] Name: Danilo Baker Jr Age: 41 yrs Sex: Male : 1980 Arrival Date: 06/29/2022 Time: 08:13 Bed 9 Private MD: Diagnosis: Acute bronchitis, unspecified Presentation: 06/29 08:27 Chief complaint: Patient states: "I've had a wheezy cough that began 2 days ago. I ss don't know if it's from working outside or what." Denies fever. Coronavirus screen: Client denies travel out of the [place] in the last 14 days. Client presents with at least one sign or symptom that may indicate coronavirus-19. Ebola Screen: Patient denies exposure to infectious person. Patient denies travel to an Ebola-affected area in the 21 days before illness onset. Initial Sepsis Screen: Does the patient meet any 2 criteria? No. Patient's initial sepsis screen is negative. Does the patient have a suspected source of infection? No. Patient's initial sepsis screen is negative. Risk Assessment: Do you want to hurt yourself or someone else? Patient reports no desire to harm self or others. Onset of symptoms was June 27, 2022. 08:27 Method Of Arrival: Ambulatory ss 08:27 Acuity: SAURABH 4 ss Historical: - Allergies: 08:28 No Known Allergies; ss - Home Meds: 08:28 None [Active]; ss - PMHx: 08:28 Diabetes - NIDDM; Hyperlipidemia; Hypertension; ss - Immunization history:: Client reports receiving the 2nd dose of the Covid vaccine. - Social history:: Smoking status: Reported history of juuling and/or vaping. Screenin:30 Abuse screen: Denies threats or abuse. Denies injuries from another. Nutritional ss screening: No deficits noted. Tuberculosis screening: Never had TB. Fall Risk None identified. Assessment: 08:30 General: Appears in no apparent distress. uncomfortable, Behavior is calm, cooperative, ss Denies fever. Neuro: Level of Consciousness is awake, alert, obeys commands, Oriented to person, place, time, situation. Cardiovascular: Capillary refill < 3 seconds is brisk in bilateral fingers. Respiratory: Airway is patent Respiratory effort is even, unlabored, Respiratory pattern is regular, symmetrical. Respiratory: Breath sounds are clear bilaterally. Respiratory: Reports cough that is non-productive. GI: No signs and/or symptoms were reported involving the gastrointestinal system. EENT: Nares are clear Throat is clear. Derm: Skin is intact, is healthy with good turgor, Skin is dry, Skin is pink, warm \\T\\ dry. normal. Vital Signs: 08:27 BP 131 / 96; Pulse 81; Resp 16; Temp 97.2(TE); Pulse Ox 99% on R/A; Weight 70.31 kg; ss Height 5 ft. 8 in. (172.72 cm); Pain 0/10; 08:27 Body Mass Index 23.57 (70.31 kg, 172.72 cm) ED Course: 08:13 Patient arrived in ED. mr 08:17 Magn[facility] Briggs [facility] 08:17 Lillian Dumont MD is Attending Physician. [facility] 08:28 Triage completed. 08:28 Arm band placed on right wrist. 08:30 Patient has correct armband on for positive identification. Bed in low position. Call ss light in reach. 08:51 Rosy Oliva, ELIZA is Primary Nurse. 09:26 XRAY Chest (1 view) In Process Unspecified. EDMS 11:00 No provider procedures requiring assistance completed. Patient did not have IV access ss during this emergency room visit. Administered Medications: No medications were administered Medication: 08:30 VIS not applicable for this client. Outcome: 10:20 Discharge ordered by . [facility] 11:00 Discharged to home ambulatory. 11:00 Condition: good 11:00 Discharge instructions given to patient, Instructed on discharge instructions, follow up and referral plans. medication usage, Demonstrated understanding of instructions, follow-up care, medications, Prescriptions given X 2. 11:02 Patient left the ED. Signatures: Dispatcher [employer] EDID Ana Denney mr Rosy Oliva, ELIZA RN Magnolia Briggs FNP [employer] OPERATOR [facility]
--- NOTE | 2022-06-29 10:43 | RAD REPORT ---
EXAM DESCRIPTION: [facility] Single View06/29/2022 9:24 am CLINICAL HISTORY: cough COMPARISON: none FINDINGS: The lungs appear clear of acute infiltrate. The heart is normal size IMPRESSION: No acute abnormalities displayed
[2022-06-29 11:31] VITALS: BP 131/96; TEMP 97.2; O2SAT 99
== END 2022-06-29 11:02 | disposition home or self-care (01) ==
LOC: ER 08:11
DX: J20.9 Acute bronchitis, unspecified (principal); E11.9 Type 2 diabetes mellitus without complications; I10 Essential (primary) hypertension; Z20.822 Contact with and (suspected) exposure to COVID-19
CPT/HCPCS: 71045; 99283; U0003